=== PATIENT | female | born 1960 | race Caucasian/White ===

== ENCOUNTER 2017-01-17 17:06 | Emergency (ER) | payer OTHER ==
[2017-01-17 17:16] VITALS: BP 152/71
--- NOTE | 2017-01-17 17:47 | UC ---
Throat Pain/Nasal Carlito HPI - HPI Summary HPI Summary: increases left side maxillary sinus pressure, sore throat for the past 10 days, now has developed severe barky cough and wheezing. chills ans sweats. - History of Current Complaint Chief Complaint: UCRespiratory Stated Complaint: RESPIRATORY C/O Time Seen by Provider: 01/17/17 17:38 Hx Obtained From: Patient Hx Last Menstrual Period: 11/12/11 Onset/Duration: Sudden Onset, Lasting Days Severity: Moderate Associated Signs & Symptoms: Positive: Dysphagia, Wheezing, Sinus Discomfort, Nasal Discharge - Epiglottits Risk Factors Epiglottis Risk Factors: Negative - Allergies/Home Medications Allergies/Adverse Reactions: Allergies Allergy/AdvReac Type Severity Reaction Status Date / Time No Known Allergies Allergy Verified 01/17/17 17:16 Home Medications: Home Medications Albuterol HFA INHALER* [Ventolin HFA Inhaler*] 1 puff INH Q4H PRN 01/17/17 [ History Confirmed 01/17/17] Alendronate (NF) [Fosamax (NF)] 70 mg PO MONTHLY 01/17/17 [History Confirmed ] Escitalopram Oxalate [Lexapro] 10 mg PO 01/17/17 [History] Pravastatin Sodium [Pravachol] 40 mg PO 01/17/17 [History] PMH/Surg Hx/FS Hx/Imm Hx Previously Healthy: Yes Endocrine History Of: Reports: Diabetes, Thyroid Disease Cardiovascular History Of: Reports: Hypertension Denies: Pacemaker/ICD, Congestive Heart Failure Respiratory History Of: Reports: Asthma GI/ History Of: Denies: Renal Disease Cancer History Of: Denies: Breast Cancer - Surgical History Surgical History: Yes Surgery Procedure, Year, and Place: GALL BLADDER SURG.06/2011 [place]STRIC BYPASS [place] [place] 05[place]2012 parathyroid removal January [address] [facility] [place] - Family History Known Family History: Positive: Cardiac Disease - Social History Alcohol Use: None Substance Use Type: None Smoking Status (MU): Never Smoked Tobacco Review of Systems Constitutional: Chills, Fatigue Skin: Negative Eyes: Negative ENT: Sore Throat, Ear Ache, Nasal Discharge Respiratory: Shortness Of Breath, Cough Cardiovascular: Negative Gastrointestinal: Negative Genitourinary: Negative Motor: Negative Neurovascular: Negative Musculoskeletal: Negative Neurological: Negative Psychological: Negative All Other Systems Reviewed And Are Negative: Yes Physical Exam Triage Information Reviewed: Yes Appearance: Well-Nourished, Ill-Appearing, Pain Distress Vital Signs: Initial Vital Signs Temp 97.6 F 01/17/17 17:12 Pulse 56 01/17/17 17:12 Resp 20 01/17/17 17:12 BP 152/71 01/17/17 17:12 Pulse Ox 99 01/17/17 17:12 Vital Signs Reviewed: Yes Eye Exam: Normal Eyes: Positive: Conjunctiva Clear ENT: Positive: Pharyngeal erythema, Nasal congestion - left maxillary sinus pressure, TMs normal, Tonsillar swelling - left Dental Exam: Normal Neck exam: Normal Neck: Positive: Supple, Nontender, No Lymphadenopathy Respiratory Exam: Normal Respiratory: Positive: Chest non-tender, Wheezing, Inspiration Abdominal Exam: Normal Abdomen Description: Positive: Nontender, No Organomegaly, Soft Bowel Sounds: Positive: Present Musculoskeletal Exam: Normal Musculoskeletal: Positive: Strength Intact, ROM Intact, No Edema Neurological Exam: Normal Neurological: Positive: Alert, Muscle Tone Normal Psychological Exam: Normal Skin Exam: Normal Throat Pain/Nasal Course/Dx - Course Course Of Treatment: hx obtained, exam performed, meds reviewed, treated for sinusitis and wheezing - Differential Dx/Diagnosis Differential Diagnosis/HQI/PQRI: Influenza, Laryngitis, Otitis Media, Pharyngitis, Sinusitis, Tonsillitis, URI Provider Diagnoses: sinutitis. bronchospasm Discharge - Discharge Plan Condition: Stable Disposition: HOME Prescriptions: Amoxicillin/Clavulanate TAB* [Augmentin TAB 875*] 875 mg PO BID #14 tab predniSONE TAB* [Deltasone TAB*] 40 mg PO DAILY #14 tab Patient Education Materials: Sinusitis (ED) Additional Instructions: take the medication as prescribed. Increase your fluid intake and get plenty of rest. ibuprofen and tylneol for pain and fever.
== END 2017-01-17 18:16 | disposition home or self-care (01) ==
LOC: UCEAST 17:06
DX: J32.9 Chronic sinusitis, unspecified (principal); E11.9 Type 2 diabetes mellitus without complications; E07.9 Disorder of thyroid, unspecified; I10 Essential (primary) hypertension; J45.909 Unspecified asthma, uncomplicated
CPT/HCPCS: 99212; G0463

== ENCOUNTER 2017-01-23 10:53 | Emergency (ER) | payer OTHER ==
[2017-01-23 11:55] VITALS: BP 133/68
--- NOTE | 2017-01-23 13:14 | UC ---
Minor Trauma HPI - HPI Summary HPI Summary: while walking outdoors 3 days ago pt tripped on uneven ground and fell onto L side. Scraped L hand and L knee -- those areas are feeling much better now. Also landed on L hip/side/ribs and in the hours and days after the fall developed aching on the L side. Also sees some dark bruises and linear red lines where she fell and is not sure if she should be worried. Has no pain with ambulation, wt-bearing, or movement of the L hip. Does have side pain with coughing and deep breathing, but said she had some of that before because she is getting over a URI. Went to gym to exercise yesterday and felt more sore afterward, but is improving a lot today. - History of Current Complaint Chief Complaint: UCUpperExtremity Stated Complaint: FELL PAIN ON SIDE Time Seen by Provider: 01/23/17 12:48 Hx Obtained From: Patient Hx Last Menstrual Period: 11/12/11 ?: No Onset/Duration: Sudden Onset, Lasting Days Onset Of Pain: Immediate Severity Initially: Mild Severity Currently: Mild Mechanism Of Injury: Fall From A Standing Position Aggravating Factor(s): Coughing, Movement Associated Signs And Symptoms: Positive: Ecchymosis. Negative: Loss Of Consciousness, Swelling - Allergies/Home Medications Allergies/Adverse Reactions: Allergies Allergy/AdvReac Type Severity Reaction Status Date / Time No Known Allergies Allergy Verified 01/23/17 11:47 PMH/Surg Hx/FS Hx/Imm Hx Endocrine History Of: Reports: Diabetes, Thyroid Disease Cardiovascular History Of: Reports: Hypertension Denies: Cardiac Disorders, Pacemaker/ICD, Congestive Heart Failure Respiratory History Of: Reports: Asthma Denies: COPD GI/ History Of: Denies: Ulcer, Renal Disease Cancer History Of: Denies: Breast Cancer - Surgical History Surgical History: Yes Surgery Procedure, Year, and Place: GALL BLADDER SURG.06/2011 [place]IC BYPASS [facility] [place] 05[place]2012 parathyroid removal January 2013 [facility] - Family History Known Family History: Positive: Cardiac Disease - Social History Alcohol Use: None Substance Use Type: None Smoking Status (MU): Never Smoked Tobacco Review of Systems Constitutional: Negative Skin: Bruising Eyes: Negative ENT: Negative Respiratory: Negative Cardiovascular: Negative Gastrointestinal: Negative Genitourinary: Negative Motor: Negative Neurovascular: Negative Musculoskeletal: Negative Neurological: Negative Psychological: Negative All Other Systems Reviewed And Are Negative: Yes Physical Exam Triage Information Reviewed: Yes Appearance: Well-Appearing, Well-Nourished, Obese Vital Signs: Initial Vital Signs Temp 97.4 F 01/23/17 11:49 Pulse 62 01/23/17 11:49 Resp 16 01/23/17 11:49 BP 133/68 01/23/17 11:49 Pulse Ox 99 01/23/17 11:49 Vital Signs Reviewed: Yes Eye Exam: Normal Eyes: Positive: Conjunctiva Clear ENT Exam: Normal ENT: Positive: Normal ENT inspection, Hearing grossly normal, Pharynx normal, TMs normal Dental Exam: Normal Neck exam: Normal Neck: Positive: Supple, Nontender Respiratory Exam: Normal Respiratory: Positive: Chest non-tender, Lungs clear, Normal breath sounds, No respiratory distress, No accessory muscle use Cardiovascular Exam: Normal Cardiovascular: Positive: RRR, No Murmur Abdomen Description: Positive: No Organomegaly, Soft. Negative: CVA Tenderness (R), CVA Tenderness (L), Distended, Guarding, McBurney's Point Tenderness, Peritoneal Signs Musculoskeletal Exam: Normal, Other - Full ROM of L hip, Musculoskeletal: Positive: Strength Intact, ROM Intact, Other: - no rib pain with indirect stress Neurological Exam: Normal Neurological: Positive: Alert, Muscle Tone Normal Psychological Exam: Normal Skin Exam: Other - small bruises L hip, several linear red bruises consistent with landing on a strap or clothing Minor Trauma Course/Dx - Differential Dx/Diagnosis Provider Diagnoses: Fall. contusions Discharge - Discharge Plan Condition: Stable Disposition: HOME Patient Education Materials: Contusion in Adults (ED) Referrals: Christine Álvarez MD [Primary Care Provider] - Additional Instructions: As we discussed, there are no signs on exam that suggest you have a broken bone or other serious underlying injury. I expect your pain and bruises to gradually fade away, and staying active usually speeds this process with minor injuries like this. You can take acetaminophen if needed. See your primary care provider or return here if you have increasing difficulty breathing or new/sudden change in your symptoms.
== END 2017-01-23 13:25 | disposition home or self-care (01) ==
LOC: UCEAST 10:53
DX: S70.02XA Contusion of left hip, initial encounter (principal); S60.512A Abrasion of left hand, initial encounter; S80.212A Abrasion, left knee, initial encounter; W01.0XXA Fall on same level from slipping, tripping and stumbling without subsequent striking against object, initial encounter; Y93.01 Activity, walking, marching and hiking; Y92.9 Unspecified place or not applicable; E11.9 Type 2 diabetes mellitus without complications; E07.9 Disorder of thyroid, unspecified; I10 Essential (primary) hypertension; J45.909 Unspecified asthma, uncomplicated; E66.9 Obesity, unspecified; Z90.49 Acquired absence of other specified parts of digestive tract; Z98.84 Bariatric surgery status
CPT/HCPCS: 99211; G0463

== ENCOUNTER 2017-05-08 09:06 | Emergency (ER) | payer OTHER ==
[2017-05-08 09:17] VITALS: BP 145/79
--- NOTE | 2017-05-28 11:52 | UC ---
Carlos Manuel Perez Angela, scribed for Lisa Rdz DO on 05/08/17 at 0928 . Skin Complaint HPI - HPI Summary HPI Summary: This pt is a 56 y/o female presenting to [facility] c/o lump underneath right breast x8 days ago. Pt reports that her lump first started as a red pimple but 2-3 days after onset it became a hard lump. She describes it as tender to touch, non -radiating pain, rating it 5 out 10 in severity, and as the size of a walnut. Pt notes that the lump is not warm, feels smooth around the edge, does not move around, and it is no longer red. She states she has never had this before. Pt denies any drainage from lump, fever, chills unexpected weight loss, sweats, nausea, vomiting, chest pain, SOB, headache, cough, rashes. She last had her mammogram in March 2017. - History of Current Complaint Chief Complaint: UCSkin Time Seen by Provider: 05/08/17 09:09 Stated Complaint: PERSONAL Hx Obtained From: Patient Hx Last Menstrual Period: 11/12/11 Onset/Duration: Lasting Days Pain Intensity: 5 Pain Scale Used: 0-10 Numeric Location: Other - Under right breast Character: Pain, Redness, Raised Aggravating: Nothing Alleviating: Nothing Associated Signs & Symptoms: Positive: Tenderness. Negative: Nausea, Vomiting, Diaphoresis, Fever, Chills, Cough, Chest Pain, Rash, Drainage - Allergy/Home Medications Allergies/Adverse Reactions: Allergies Allergy/AdvReac Type Severity Reaction Status Date / Time No Known Allergies Allergy Verified 05/08/17 09:18 Home Medications: Home Medications Ascorbic Acid TAB* [Vitamin C TAB*] 1 tab PO DAILY 05/08/17 [History Confirmed 05/08/17] Biotin [Biotin] 5,000 mcg SL DAILY 05/08/17 [History Confirmed 05/08/17] Calcium Citrate-Vitamin D [Citracal Petites/Vitamin 200-250 mg-Unit] 1 tab PO DAILY 05/08/17 [History Confirmed 05/08/17] Cholecalciferol [Vitamin D3] 1 tab PO DAILY 05/08/17 [History Confirmed 05/08/17 ] Cyanocobalamin [Vitamin B 12] 500 mg SL DAILY 05/08/17 [History Confirmed ] Ferrous Sulfate [Iron (Ferrous Sulfate)] 1 tab PO DAILY 05/08/17 [History Confirmed 05/08/17] Levalbuterol HFA INHALER* [Xopenex Hfa Inhaler*] 45 mg INH Q4HR PRN 05/08/17 [ History Confirmed 05/08/17] Levocetirizine Dihydrochloride [Xyzal Allergy 24Hr] 1 tab PO DAILY 05/08/17 [ History Confirmed 05/08/17] Lisinopril [Lisinopril 2.5 MG-] 2.5 mg PO DAILY 05/08/17 [History Confirmed ] Multiple Vitamins W/ Minerals [Centrum Vitamints] 1 chw PO DAILY 05/08/17 [ History Confirmed 05/08/17] Olopatadine 0.2% (NF) [Pataday 0.2% (NF)] 1 drop OPHTHALMIC DAILY PRN 05/08/17 [ History Confirmed 05/08/17] Veramyst 1 spray BOTH NARES DAILY PRN 05/08/17 [History] Review of Systems Constitutional: Negative Skin: Other - Tender lump under right breast. Respiratory: Negative Cardiovascular: Negative Gastrointestinal: Negative Neurological: Negative All Other Systems Reviewed And Are Negative: Yes - Comments Additional Review of Systems Comments: NEGATIVE: fever, chills, unexpected weight change, sweats, nausea, vomiting, chest pain, SOB, headache, cough, rashes. PMH/Surg Hx/FS Hx/Imm Hx Endocrine History: Diabetes, Thyroid Disease Cardiovascular History: Hypertension Respiratory History: Asthma - Surgical History Surgical History: Yes Surgery Procedure, Year, and Place: GALL BLADDER SURG.06/2011 [place]PASS [place] parathyroid removal January 2013 [facility] [place] - Family History Known Family History: Positive: Cardiac Disease, Hypertension - Mother and Father, Diabetes - Father - Social History Alcohol Use: Rare Substance Use Type: None Smoking Status (MU): Never Smoked Tobacco Physical Exam Triage Information Reviewed: Yes Appearance: Well-Appearing, No Pain Distress, Well-Nourished Vital Signs: Initial Vital Signs Temp 97.6 F 05/08/17 09:13 Pulse 55 05/08/17 09:13 Resp 16 05/08/17 09:13 BP 145/79 05/08/17 09:13 Pulse Ox 99 08/13/17 09:13 Vital Signs Reviewed: Yes Eyes: Positive: Conjunctiva Clear. Negative: Discharge ENT: Positive: Hearing grossly normal. Negative: Muffled/hoarse voice - Normal voice. Neck exam: Normal Neck: Positive: Supple Respiratory: Positive: Lungs clear, Normal breath sounds, No respiratory distress, No accessory muscle use Cardiovascular: Positive: RRR, No Murmur Musculoskeletal Exam: Normal Neurological: Positive: Alert, Muscle Tone Normal Psychological Exam: Normal Psychological: Positive: Age Appropriate Behavior Skin Exam: Other - 1.5 cm x 1 cm mass under right breast, it is firm. Course/Dx - Diagnoses Provider Diagnoses: Breast Mass. Elevated blood pressure Discharge - Discharge Plan Condition: Stable Disposition: HOME Patient Education Materials: Breast Mass (ED) Referrals: Christine Álvarez MD [Primary Care Provider] - 1 Day Kamari Meng MD [Medical Doctor] - 1 Day Additional Instructions: PLEASE FOLLOW UP WITH YOUR PC OR MILITARY TECHNOLOGY MANAGER DIRECTED. IF WORK UP ON THE MASS IS NEGATIVE FOR CANCER, YOU WOULD LIKELY BENEFIT FROM OSTEOPATHIC TREATMENT. WE RECOMMEND THAT YOU FIND AN OSTEOPATHIC PHYSICIAN IN YOUR AREA WHO FOCUSES EXCLUSIVELY ON OSTEOPATHIC MANIPULATIVE MEDICINE WITH EXPERTISE IN MYOFACIAL, LYMPHATIC, VISCERAL AND INTEROSSEOUS WORK. Your blood pressure was elevated at this visit, it is probably due to your current condition. Please follow up with your primary care provider. The documentation as recorded by the Carlos Manuel glass Angela accurately reflects the service I personally performed and the decisions made by me, Lisa Rdz DO.
== END 2017-05-08 10:05 | disposition home or self-care (01) ==
LOC: UCEAST 09:06
DX: N63 Unspecified lump in breast (principal); I10 Essential (primary) hypertension; E11.9 Type 2 diabetes mellitus without complications; E07.9 Disorder of thyroid, unspecified; J45.909 Unspecified asthma, uncomplicated; Z90.49 Acquired absence of other specified parts of digestive tract; Z98.84 Bariatric surgery status
CPT/HCPCS: 99212; G0463

== ENCOUNTER 2018-08-15 14:01 | Emergency (ER) | payer OTHER ==
[2018-08-15 14:38] VITALS: BP 136/81
--- NOTE | 2018-08-15 15:04 | UC ---
Respiratory Complaint HPI - HPI Summary HPI Summary: 57 yo female presents with sinus pain/pressure/congestion, post nasal drip, and a dry cough for the last week. She has not been taking anything OTC. She has a hx of asthma and has an albuterol inhaler at home, but says she has not been using this. She has felt hot/cold at times, but has not taken her temperature and is unsure if she has a fever. Denies sore throat, SOB, chest pain, rash. - History of Current Complaint Chief Complaint: UCGeneralIllness Stated Complaint: COUGH,WHEEZING Time Seen by Provider: 08/15/18 14:58 Hx Obtained From: Patient Hx Last Menstrual Period: 11/12/11 Onset/Duration: Gradual Onset Severity Initially: Moderate Severity Currently: Moderate Pain Intensity: 8 Pain Scale Used: 0-10 Numeric Character: Cough: Nonproductive - Allergies/Home Medications Allergies/Adverse Reactions: Allergies Allergy/AdvReac Type Severity Reaction Status Date / Time No Known Allergies Allergy Verified 08/15/18 14:28 Home Medications: Home Medications Acetaminophen [Acetaminophen Extra Strength] 500 mg PO ONCE 08/15/18 [History Confirmed 08/15/18] PMH/Surg Hx/FS Hx/Imm Hx - Additional Past Medical History Additional PMH: Allergies Cardiovascular History: Hypertension Psychological History: Anxiety, Depression - Surgical History Surgical History: Yes Surgery Procedure, Year, and Place: GALL BLADDER SURG.06/2011 [place] [facility] [place] - Family History Known Family History: Positive: Cardiac Disease - Social History Occupation: Employed Full-time Lives: With Family Alcohol Use: Occasionally Substance Use Type: None Smoking Status (MU): Never Smoked Tobacco Review of Systems All Other Systems Reviewed And Are Negative: Yes Constitutional: Positive: Negative Skin: Positive: Negative Eyes: Positive: Negative ENT: Positive: Nasal Discharge, Sinus Congestion, Sinus Pain/Tenderness Respiratory: Positive: Cough Cardiovascular: Positive: Negative Gastrointestinal: Positive: Negative Neurological: Positive: Negative Psychological: Positive: Negative Physical Exam - Summary Physical Exam Summary: GENERAL: NAD. WDWN. No pain distress. SKIN: No rashes, sores, lesions, or open wounds. HEENT: Head: AT/NC Eyes: EOM intact. Conjunctiva clear without inflammation or discharge. Ears: Hearing grossly normal. TMs intact, no bulging, erythema, or edema. Nose: Nasal mucosa mildly swollen and erythematous with clear discharge. TTP maxillary and frontal sinus. Positive post nasal drip Throat: Posterior oropharynx without exudates, erythema, or tonsillar enlargement. Uvula midline. NECK: Supple. Nontender. No lymphadenopathy. CHEST: Scant wheezing throughout. No r/r. No accessory muscle use. Breathing comfortably and in no distress. CV: RRR. Without m/r/g. Pulses intact. NEURO: Alert. PSYCH: Age appropriate behavior. Triage Information Reviewed: Yes Vital Signs: Initial Vital Signs Temp 97.5 F 08/15/18 14:32 Pulse 75 08/15/18 14:32 Resp 16 08/15/18 14:32 BP 136/81 08/15/18 14:32 Pulse Ox 98 08/15/18 14:32 Vital Signs Reviewed: Yes UC Diagnostic Evaluation - Laboratory O2 Sat by Pulse Oximetry: 98 Respiratory Course/Dx - Course Course Of Treatment: Sinusitis. Asthma exacerbation. Will tx with jarvis and have her start using her at home inhaler for her asthma. Advised to try OTC dayquill/ nyquill and/or Mucinex in addition. - Differential Dx/Diagnosis Provider Diagnoses: Sinusitis. Asthma Exacerbation Discharge - Sign-Out/Discharge Documenting (check all that apply): Patient Departure All imaging exams completed and their final reports reviewed: No Studies - Discharge Plan Condition: Stable Disposition: HOME Prescriptions: Azithromycin TAB* [Zithromax TAB (Z-BRUCE) 250 mg #6 tabs] 2 tab PO .TODAY, THEN 1 DAILY #1 bruce Patient Education Materials: Sinusitis (ED), Acute Bronchitis (ED) Referrals: Christine Álvarez MD [Primary Care Provider] - Additional Instructions: If you develop a fever, shortness of breath, chest pain, new or worsening symptoms - please call your PCP or go to the ED. Your blood pressure was mildly elevated at todays visit. Please see your primary provider within 4 weeks for recheck and re-evaluation. 1) Please use your at home inhalers as directed for coughing/wheezing - Billing Disposition and Condition Condition: STABLE Disposition: Home - Attestation Statements Provider Attestation: Per institutional requirements, I have reviewed the chart, however, I was not consulted specifically or made aware of this patient by the midlevel provider. I did not personally evaluate, interact with , or disposition this patient.
== END 2018-08-15 15:11 | disposition home or self-care (01) ==
LOC: UCEAST 14:01
DX: J32.9 Chronic sinusitis, unspecified (principal); J45.901 Unspecified asthma with (acute) exacerbation; I10 Essential (primary) hypertension
CPT/HCPCS: 99212; G0463

== ENCOUNTER 2018-09-26 08:46 | Emergency (ER) | payer OTHER ==
[2018-09-26 09:00] VITALS: BP 132/76
--- NOTE | 2018-09-26 10:05 | UC ---
Respiratory Complaint HPI - HPI Summary HPI Summary: 1 week of cough, congestion, sinus pressure and intermittent subjective fever. Does not feel she is improving. - History of Current Complaint Chief Complaint: UCRespiratory Stated Complaint: SINUS COMPLAINT Time Seen by Provider: 09/26/18 09:35 Hx Obtained From: Patient Hx Last Menstrual Period: 11/12/11 Onset/Duration: Gradual Onset, Lasting Days, Still Present Timing: Constant Severity Initially: Moderate Severity Currently: Moderate Pain Intensity: 6 Pain Scale Used: 0-10 Numeric Character: Cough: Nonproductive Aggravating Factors: Nothing Alleviating Factors: Nothing Associated Signs And Symptoms: Positive: Fever, URI, Nasal Congestion, Sinus Discomfort. Negative: Dyspnea, Wheezing - Allergies/Home Medications Allergies/Adverse Reactions: Allergies Allergy/AdvReac Type Severity Reaction Status Date / Time No Known Allergies Allergy Verified 08/15/18 14:28 Home Medications: Home Medications Guaifen/Dextromethorphan/PE [Mucinex Fast-Max Congest-Cough] 09/26/18 [History] PMH/Surg Hx/FS Hx/Imm Hx Endocrine History: Diabetes, Thyroid Disease - PARATHYROIDECTOMY, Dyslipidemia Cardiovascular History: Hypertension Respiratory History: Asthma - Surgical History Surgical History: Yes Surgery Procedure, Year, and Place: GALL BLADDER SURG.06/2011 [place]IC [place]PASS [place] January 2013 [facility] [place] - Family History Known Family History: Positive: Cardiac Disease - Social History Alcohol Use: Daily Alcohol Amount: 2 drinks/day Substance Use Type: None Smoking Status (MU): Never Smoked Tobacco Review of Systems All Other Systems Reviewed And Are Negative: Yes Constitutional: Positive: Fever, Fatigue ENT: Positive: Nasal Discharge, Sinus Congestion Respiratory: Positive: Cough Cardiovascular: Positive: Negative Gastrointestinal: Positive: Negative Physical Exam Triage Information Reviewed: Yes Appearance: Well-Appearing, No Pain Distress, Well-Nourished Vital Signs: Initial Vital Signs Temp 97.6 F 09/26/18 08:50 Pulse 59 09/26/18 08:50 Resp 16 09/26/18 08:50 BP 132/76 09/26/18 08:50 Pulse Ox 97 09/26/18 08:50 Vital Signs Reviewed: Yes Eyes: Positive: Conjunctiva Clear ENT: Positive: Hearing grossly normal, Pharynx normal, TMs normal Neck: Positive: Supple, Nontender, No Lymphadenopathy Respiratory Exam: Normal Cardiovascular Exam: Normal Abdomen Description: Positive: Soft Musculoskeletal: Positive: No Edema Neurological: Positive: Alert Psychological: Positive: Age Appropriate Behavior Skin: Negative: Rashes UC Diagnostic Evaluation - Laboratory O2 Sat by Pulse Oximetry: 97 Respiratory Course/Dx - Differential Dx/Diagnosis Provider Diagnosis: Acute bronchitis Discharge - Sign-Out/Discharge Documenting (check all that apply): Patient Departure All imaging exams completed and their final reports reviewed: No Studies - Discharge Plan Condition: Stable Disposition: HOME Prescriptions: Azithromycin 500 mg PO DAILY #5 tab Codeine Phosphate/Guaifenesin [Codeine-Guaifen 10-100 mg/5 ml] 5 - 10 ml PO Q6H PRN #150 ml MDD 40ML PRN Reason: Cough Patient Education Materials: Acute Bronchitis (ED) Referrals: Christine Álvarez MD [Primary Care Provider] - If Needed Additional Instructions: YOUR SYMPTOMS MAY BE VIRALLY MEDIATED BUT GIVEN THE LENGTH OF TIME YOU HAVE BEEN ILL WE WILL COVER YOU WITH ANTIBIOTICS. IF YOU START THE MEDICINE BE SURE TO TAKE IT FOR THE FULL COURSE. REST, HYDRATE, OTC MEDS NEEDED. WILL ALSO TREAT WITH COUGH MEDICINE. SEEK FOLLOW-UP WITH YOUR PCP IF YOU ARE NOT IMPROVING OVER THE NEXT 1-2 WEEKS. - Billing Disposition and Condition Condition: STABLE Disposition: Home
== END 2018-09-26 09:55 | disposition home or self-care (01) ==
LOC: UCEAST 08:46
DX: J20.9 Acute bronchitis, unspecified (principal); J34.89 Other specified disorders of nose and nasal sinuses; E11.9 Type 2 diabetes mellitus without complications; J45.909 Unspecified asthma, uncomplicated; I10 Essential (primary) hypertension; Z98.84 Bariatric surgery status
CPT/HCPCS: 99212; G0463

== ENCOUNTER 2019-11-29 12:23 | Day surgery (SDC) | payer OTHER ==
[~2019-11-29 12:23] MED LIST: Buffered Lidocaine 1% SYRIN* 1 ML/SYRINGE INTRADERM ONE; Bupivacaine 0.5% SDV PF* 30ML VIAL ONE; Lactated Ringers 1000 ML Bag* 1,000 ML IV SCH
[2019-11-29 14:17] VITALS: BP 133/51
--- NOTE | 2019-11-30 02:31 | OP ---
OPERATIVE REPORT: DATE OF OPERATION: 11/29/19 - TOBY DATE OF : 56 SURGEON: Manuel Gomez MD SURVEYING TECHNICIAN: JAYSHREE Man An ortho assistant was needed for the procedure to aid in retraction. ANESTHESIOLOGIST: None. ANESTHESIA: Local only with digital block performed with 0.5% Marcaine. PRE-OP DIAGNOSIS: Right ring finger dorsal periarticular PIP joint mass. POST-OP DIAGNOSIS: Right ring finger dorsal middle phalanx periarticular osteophyte adjacent to the radial collateral ligament insertion. ESTIMATED BLOOD LOSS: 2 mL. COMPLICATIONS: None. FINDINGS: See above and below. DESCRIPTION OF PROCEDURE: Ms. Rogers was seen in the preoperative holding area. The correct site, side, and procedure were identified. I injected the right ring finger with a digital block with 0.5% Marcaine. We came back to the operating room, where the arm was prepped and draped in the usual fashion. A time-out was performed. I placed a digital tourniquet on the finger. I then made a longitudinal incision on the dorsal radial finger over the mass, which was just distal to the PIP joint. Dissection was carried down. There was no soft tissue mass. The transverse retinacular ligament was released, so that I could retract the extensor tendon dorsally. A large bone spur was noted just at the insertion of the radial collateral ligament and dorsal to that. I freed up all the soft tissue around it. I took the rongeur and I excised the osteophyte. As they came more palmarly, it was underneath the insertion of the radial collateral ligament. I preserved the vas majority of the radial collateral ligament insertion, but I did release just the most dorsal part of the proper radial collateral ligament. Once I had fully excised the osteophyte to the extent possible, I irrigated out the area, I placed some bone wax on the cancellous bed. I then placed one micro Mitek suture anchor right adjacent to the footprint of the radial collateral ligament insertion. I sewed the one limb of the 4-0 Ethibond suture as a whipstitch up into the most dorsal part of the ligament and then I tied that off just to secure and get some extra stability to the radial collateral ligament. I had it flexed and extend the finger multiple times. There was full range of motion. There was no instability whatsoever. We had excised as much of the osteophyte as we could and so we irrigated out the wound. The skin was then closed with 4-0 nylon suture. A soft dressing was applied and she was taken to the recovery room in stable condition. [id number] #: [id number] MTDD
== END 2019-11-29 14:13 | disposition home or self-care (01) ==
LOC: OREAST 12:23
PROVIDERS: ATTEND Orthopaedic Surgery Hand Surgery
DX: M25.741 Osteophyte, right hand (principal); I10 Essential (primary) hypertension; J45.909 Unspecified asthma, uncomplicated; E78.00 Pure hypercholesterolemia, unspecified; E11.9 Type 2 diabetes mellitus without complications; Z79.84 Long term (current) use of oral hypoglycemic drugs; F41.9 Anxiety disorder, unspecified
CPT/HCPCS: 88304; 88311; J3490

== ENCOUNTER 2023-05-26 05:46 | Inpatient (IN) ==
[~2023-05-26 05:46] MED LIST changes: +Buffered Lidocaine 1% SYRIN 1 ml INTRADERM ONE; -Buffered Lidocaine 1% SYRIN* 1 ML/SYRINGE INTRADERM ONE; -Bupivacaine 0.5% SDV PF* 30ML VIAL ONE; +HYDROmorphone 1 MG/1 ML SYRINGE IV PRN; -Lactated Ringers 1000 ML Bag* 1,000 ML IV SCH; +Naloxone 0.4 mg VIAL 0.4 mg/ml 1 ml VIAL IV PRN; +Ondansetron 4 mg VIAL 2 MG/ML 2 ml VIAL IV PRN; +Scopolamine 1 mg/72hr PATCH TRANSDERM ONE; +fentaNYL 100 mcg/2 ml 50 MCG/ML VIAL IV PRN
[2023-05-26] MEDS ORDERED: Scopolamine 1 mg/72hr PATCH ONE (06:08)
[2023-05-26] MEDS ORDERED: ceFAZolin 2 GM in NS PREMIX 2 GM/100 ML BAG IVPB ONE (06:08)
[2023-05-26] MEDS ORDERED: Ondansetron 4 mg VIAL 2 MG/ML 2 ml VIAL ONE ×3 (06:08→18:11)
[2023-05-26] MEDS ORDERED: Dexamethasone IV 4 MG/ML VIAL 1 ml VIAL ONE ×2 (06:08→07:17)
[2023-05-26] MEDS ORDERED: Heparin 5000 UNITS/ML 1 mL VIAL ONE (06:08)
[2023-05-26 06:46] LABS: Rapid COVID-19 Molecular Undetected (Undetected)
[2023-05-26] MEDS ORDERED: Bupivacaine 0.25% SDV 30 ML ONE (06:56)
[2023-05-26] MEDS ORDERED: ISOSULFAN BLUE 1% 5 ML VIAL 10 MG/ML SUBCUT ONE (06:56)
[2023-05-26] MEDS: Lactated Ringers 1000 ml BAG 1,000 ML IV SCH ×2 (06:57→19:04)
[2023-05-26] MEDS ORDERED: fentaNYL 250 mcg/5 ml 50 MCG/ML 5 ml VIAL (250 MCG) ONE ×2 (07:17→20:35)
[2023-05-26] MEDS ORDERED: Midazolam 2 mg/2 ml VIAL 1 mg/ml 2 ml VIAL (2 mg) ONE ×2 (07:17→23:25)
[2023-05-26] MEDS ORDERED: Propofol 10 MG/ML 20 ML BTL ONE ×4 (07:17→20:35)
[2023-05-26] MEDS ORDERED: Rocuronium 50 mg VIAL 10 mg/ml 5 ml VIAL (50 mg) ONE ×3 (07:23→20:36)
[2023-05-26] MEDS ORDERED: Lidocaine 2% PF 5 ML VIAL ONE (07:24)
[2023-05-26] MEDS ORDERED: Phenylephrine 40 mcg/mL 10mL (400mcg) SYRINGE ONE (08:16)
[2023-05-26] MEDS ORDERED: HYDROmorphone 0.5 MG/0.5 ML SYRINGE ONE ×3 (10:38→12:08)
[2023-05-26] MEDS ORDERED: Lactated Ringers 1000 ml BAG 1,000 ML IV ONE (12:55)
[2023-05-26] MEDS ORDERED: Metoprolol Tartrate 5 mg VIAL 5 ml VIAL (1 mg/ml) ONE (13:09)
[2023-05-26] MEDS ORDERED: Metoprolol Tartrate 5 mg VIAL 5 ml VIAL (1 mg/ml) IV ONE (13:14)
[2023-05-26 13:53] LABS: ABS Lymphocytes 0.6 10^3/uL (1.0-4.8); ABS Monocytes 0.2 10^3/uL (0.0-0.9); ABS Neutrophils 14.4 10^3/uL (1.5-7.6); Hematocrit 39.6 % (35-45); Hemoglobin 13.2 g/dL (11.5-14.3); Lymphocyte % 4.2 %; Mean Corpuscular Hemoglobin 31.2 pg (27-33); Mean Corpuscular Hgb Conc 33.4 g/dL (31-36); Mean Corpuscular Volume 93.6 fL (80-97); Mean Platelet Volume 7.9 fL (7.5-11.2); Platelet Count 264 10^3/uL (150-450); Red Blood Count 4.23 10^6/uL (3.63-4.92); Red Cell Distribution Width 12.9 % (12-17); White Blood Count 15.3 10^3/uL (3.8-11.8)
[2023-05-26] MEDS ORDERED: Albumin Human 5% 12.5 GM/250 ML BTL IV ONE ×2 (14:08→14:14)
[2023-05-26 14:12] LABS: Calcium 8.6 mg/dL (8.6-10.3); Potassium 4.3 mmol/L (3.5-5.0); eGFR CKD-EPI 62.9 (>60)
[2023-05-26] MEDS ORDERED: Acetaminophen IV 1 GM/100ML 1,000 MG/100 ML BAG IV ONE (17:32)
[2023-05-26] MEDS ORDERED: fentaNYL 100 mcg/2 ml 50 MCG/ML VIAL IV SLOW PU PRN (18:15)
[2023-05-26] MEDS ORDERED: Olopatadine 0.2% (NF) 1 DROP BTL BOTH EYES PRN (18:18)
[2023-05-26] MEDS ORDERED: Albuterol HFA INHALER 8 gm MDI INH PRN (18:18)
[2023-05-26] MEDS ORDERED: EPINEPHrine Anaphylaxis SYR CERTADOSE SYR KIT ONE (18:39)
[2023-05-26] MEDS ORDERED: Succinylcholine 200 mg VIAL 20 mg/ml 10 ml VIAL (200 mg) ONE (18:39)
[2023-05-26] MEDS ORDERED: fentaNYL 100 mcg/2 ml 50 MCG/ML VIAL ONE (19:24)
[2023-05-26 19:43] LABS: ABS Lymphocytes 1.3 10^3/uL (1.0-4.8); ABS Monocytes 1.2 10^3/uL (0.0-0.9); ABS Neutrophils 14.3 10^3/uL (1.5-7.6); ABS Nucleated RBC 0.01 10^3/ul; Hematocrit 22.6 % (35-45); Hemoglobin 7.4 g/dL (11.5-14.3); Lymphocyte % 7.7 %; Mean Corpuscular Hemoglobin 31.4 pg (27-33); Mean Corpuscular Hgb Conc 32.7 g/dL (31-36); Mean Platelet Volume 7.8 fL (7.5-11.2); Platelet Count 189 10^3/uL (150-450); Red Blood Count 2.36 10^6/uL (3.63-4.92); White Blood Count 16.8 10^3/uL (3.8-11.8)
[2023-05-26 19:59] LABS: Calcium 7.5 mg/dL (8.6-10.3); Creatinine, Serum 1.26 mg/dL (0.51-0.95); Potassium 4.3 mmol/L (3.5-5.0); eGFR CKD-EPI 47.7 (>60)
[2023-05-26 20:35] LABS: INR 1.34 (0.83-1.13)
[2023-05-26] MEDS ORDERED: Etomidate 20 mg/10 ml 2 MG/ML 10 ml VIAL ONE (20:35)
[2023-05-26] MEDS ORDERED: Calcium Gluconate 1 GM/10 ML VIAL (in Pyxis) IV PUSH ONE (20:41)
[2023-05-26] MEDS ORDERED: Sodium Bicarbonate 8.4% SYR 50 ml SYRINGE IV ONE (20:42)
[2023-05-26] MEDS ORDERED: ceFAZolin VIAL VIAL ONE (21:36)
[2023-05-26] MEDS ORDERED: EPINEPHrine Anaphylaxis SYR CERTADOSE SYR KIT IM ONE (21:47)
[2023-05-26] MEDS: Norepinephrine 16MCG/ML BAGD5W 4,000 MCG/250 ML BAG IV SCH (22:02)
[2023-05-26] MEDS ORDERED: Dextrose 50% Syringe 50 ml 25 GM/50 ML SYRINGE IV PUSH PRN (22:02)
[2023-05-26] MEDS ORDERED: Phenylephrine IV 10 MG/ML 1 ml VIAL ONE (22:11)
[2023-05-26] MEDS ORDERED: Dexmedetomidine 1,000 MCG in NS 0.9% 250 ml 240 ML IV SCH (23:45)
[2023-05-27 01:02] LABS: Hematocrit 35.1 % (35-45); Hemoglobin 11.9 g/dL (11.5-14.3); Mean Corpuscular Hemoglobin 31.2 pg (27-33); Mean Corpuscular Hgb Conc 33.8 g/dL (31-36); Mean Corpuscular Volume 92.2 fL (80-97); Mean Platelet Volume 7.9 fL (7.5-11.2); Platelet Count 149 10^3/uL (150-450); Red Blood Count 3.81 10^6/uL (3.63-4.92); Red Cell Distribution Width 13.6 % (12-17)
[2023-05-27 01:37] LABS: ABS Lymphocytes 1.2 10^3/uL (1.0-4.8); ABS Monocytes 1.2 10^3/uL (0.0-0.9); ABS Neutrophils 11.6 10^3/uL (1.5-7.6); ABS Nucleated RBC 0.01 10^3/ul; Eosinophil % 0.1 %; Lymphocyte % 8.5 %
[2023-05-27 03:56] LABS: Hematocrit 36.3 % (35-45); Hemoglobin 12.6 g/dL (11.5-14.3); Mean Corpuscular Hemoglobin 31.3 pg (27-33); Mean Corpuscular Hgb Conc 34.7 g/dL (31-36); Mean Corpuscular Volume 90.3 fL (80-97); Mean Platelet Volume 8.1 fL (7.5-11.2); Platelet Count 168 10^3/uL (150-450); Red Blood Count 4.02 10^6/uL (3.63-4.92); Red Cell Distribution Width 13.9 % (12-17); White Blood Count 13.1 10^3/uL (3.8-11.8)
[2023-05-27 03:57] LABS: ABS Lymphocytes 1.1 10^3/uL (1.0-4.8); ABS Monocytes 1.2 10^3/uL (0.0-0.9); ABS Neutrophils 10.8 10^3/uL (1.5-7.6); ABS Nucleated RBC 0.01 10^3/ul; Lymphocyte % 8.5 %; Nucleated Red Blood Cells % 0.1 /100 WBC (0.0-0.4)
[2023-05-27 04:12] LABS: Albumin 3.1 g/dL (3.2-5.2); Albumin/Globulin Ratio 2.2 (1-3); Calcium 7.6 mg/dL (8.6-10.3); Creatinine, Serum 1.52 mg/dL (0.51-0.95); Globulin 1.4 g/dL (2-4); Magnesium 1.4 mg/dL (1.9-2.7); Potassium 3.9 mmol/L (3.5-5.0); Total Bilirubin 0.6 mg/dL (0.2-1.0); Total Protein 4.5 g/dL (6.4-8.9); eGFR CKD-EPI 38.1 (>60)
[2023-05-27] MEDS ORDERED: Magnesium Sulfate 2 gm BAG 2 GM/50 ML BAG IVPB ONE (04:26)
[2023-05-27] MEDS: Multivitamins/Minerals TAB PO SCH (08:26)
[2023-05-27 09:10] LABS: PCO2 Arterial 29 mmHg (35-45); PO2 Arterial 84 mmHg (80-100)
[2023-05-27] MEDS: Acetaminophen IV 1 GM/100ML 1,000 MG/100 ML BAG IV PRN ×2 (09:11→17:32)
[2023-05-27] MEDS ORDERED: NS 0.9% 500 ml BAG 500 ML IV ONE (09:49)
[2023-05-27] MEDS: Norepinephrine 16MCG/ML BAGD5W 4,000 MCG/250 ML BAG IV SCH ×3 (11:28→22:08)
[2023-05-27] MEDS ORDERED: NORMOSOL-R pH 7.4 1000 mL BAG 500 ML IV ONE (13:00)
[2023-05-27 13:51] LABS: Hematocrit 27.7 % (35-45); Hemoglobin 9.8 g/dL (11.5-14.3); Mean Corpuscular Hemoglobin 31.7 pg (27-33); Mean Corpuscular Hgb Conc 35.2 g/dL (31-36); Mean Platelet Volume 7.7 fL (7.5-11.2); Platelet Count 142 10^3/uL (150-450); Red Blood Count 3.08 10^6/uL (3.63-4.92); Red Cell Distribution Width 13.8 % (12-17); White Blood Count 9.1 10^3/uL (3.8-11.8)
[2023-05-27 14:38] LABS: RBC Morphology Normal (Normal)
[2023-05-27 14:42] LABS: ABS Lymphocytes 1.6 10^3/uL (1.0-4.8); ABS Monocytes 1.1 10^3/uL (0.0-0.9); ABS Neutrophils 6.4 10^3/uL (1.5-7.6); ABS Nucleated RBC 0.01 10^3/ul; Lymphocyte % 18.1 %; Nucleated Red Blood Cells % 0.1 /100 WBC (0.0-0.4)
[2023-05-27 16:33] LABS: Albumin 2.4 g/dL (3.2-5.2); Calcium 6.9 mg/dL (8.6-10.3); Potassium 4.2 mmol/L (3.5-5.0)
[2023-05-27 16:39] LABS: Creatinine, Serum 1.62 mg/dL (0.51-0.95); eGFR CKD-EPI 35.3 (>60)
[2023-05-27] MEDS: CMCS:Pravastatin 20 mg TAB (NF) PO SCH (17:31)
[2023-05-27 23:39] LABS: Hematocrit 25.9 % (35-45); Hemoglobin 9.4 g/dL (11.5-14.3)
[2023-05-28 05:41] LABS: ABS Lymphocytes 1.7 10^3/uL (1.0-4.8); ABS Monocytes 0.9 10^3/uL (0.0-0.9); ABS Neutrophils 5.8 10^3/uL (1.5-7.6); Eosinophil % 0.1 %; Hemoglobin 8.6 g/dL (11.5-14.3); Lymphocyte % 19.8 %; Mean Corpuscular Hemoglobin 32.1 pg (27-33); Mean Platelet Volume 7.8 fL (7.5-11.2); Nucleated Red Blood Cells % 0.1 /100 WBC (0.0-0.4); Platelet Count 157 10^3/uL (150-450); Red Blood Count 2.69 10^6/uL (3.63-4.92); Red Cell Distribution Width 13.8 % (12-17); White Blood Count 8.4 10^3/uL (3.8-11.8)
[2023-05-28 06:05] LABS: Calcium 6.9 mg/dL (8.6-10.3); Creatinine, Serum 1.34 mg/dL (0.51-0.95); Potassium 3.7 mmol/L (3.5-5.0); eGFR CKD-EPI 44.3 (>60)
[2023-05-28] MEDS: Norepinephrine 16MCG/ML BAGD5W 4,000 MCG/250 ML BAG IV SCH ×2 (07:37→17:31)
[2023-05-28] MEDS: Multivitamins/Minerals TAB PO SCH (07:39)
[2023-05-28] MEDS ORDERED: NS 0.9% 500 ml BAG 500 ML IV ONE (07:56)
[2023-05-28] MEDS ORDERED: NORMOSOL-R pH 7.4 1000 mL BAG 500 ML IV SCH ×2 (09:00)
[2023-05-28] MEDS: Acetaminophen IV 1 GM/100ML 1,000 MG/100 ML BAG IV PRN ×2 (14:56→21:22)
[2023-05-28 15:32] LABS: ABS Lymphocytes 1.4 10^3/uL (1.0-4.8); ABS Monocytes 0.8 10^3/uL (0.0-0.9); ABS Neutrophils 6.3 10^3/uL (1.5-7.6); Hematocrit 25.4 % (35-45); Lymphocyte % 16.8 %; Mean Corpuscular Hemoglobin 30.8 pg (27-33); Mean Corpuscular Hgb Conc 35.3 g/dL (31-36); Mean Corpuscular Volume 87.2 fL (80-97); Mean Platelet Volume 6.9 fL (7.5-11.2); Platelet Count 140 10^3/uL (150-450); Red Blood Count 2.91 10^6/uL (3.63-4.92); Red Cell Distribution Width 15.2 % (12-17); White Blood Count 8.6 10^3/uL (3.8-11.8)
[2023-05-28] MEDS ORDERED: NORMOSOL-R pH 7.4 1000 mL BAG 1,000 ML IV SCH (17:00)
[2023-05-28] MEDS: CMCS:Pravastatin 20 mg TAB (NF) PO SCH (17:08)
[2023-05-28] MEDS ORDERED: NORMOSOL-R pH 7.4 1000 mL BAG 1,000 ML IV ONE (17:15)
[2023-05-29 04:41] LABS: ABS Lymphocytes 1.6 10^3/uL (1.0-4.8); ABS Monocytes 0.6 10^3/uL (0.0-0.9); ABS Neutrophils 5.3 10^3/uL (1.5-7.6); ABS Nucleated RBC 0.01 10^3/ul; Eosinophil % 0.5 %; Hematocrit 23.9 % (35-45); Hemoglobin 8.5 g/dL (11.5-14.3); Lymphocyte % 21.3 %; Mean Corpuscular Hemoglobin 31.3 pg (27-33); Mean Corpuscular Hgb Conc 35.6 g/dL (31-36); Mean Platelet Volume 6.8 fL (7.5-11.2); Nucleated Red Blood Cells % 0.2 /100 WBC (0.0-0.4); Platelet Count 148 10^3/uL (150-450); Red Blood Count 2.71 10^6/uL (3.63-4.92); Red Cell Distribution Width 15.6 % (12-17); White Blood Count 7.6 10^3/uL (3.8-11.8)
[2023-05-29 04:58] LABS: Calcium 7.1 mg/dL (8.6-10.3); Creatinine, Serum 0.85 mg/dL (0.51-0.95); Magnesium 2.1 mg/dL (1.9-2.7); Phosphorus 1.9 mg/dL (2.5-5.0); Potassium 3.6 mmol/L (3.5-5.0); eGFR CKD-EPI 76.5 (>60)
[2023-05-29] MEDS: Multivitamins/Minerals TAB PO SCH (07:41)
[2023-05-29] MEDS: Potassium & Sodium Phos 250 mg = 1 PACKET PO SCH ×2 (10:25→20:06)
[2023-05-29] MEDS: Norepinephrine 16MCG/ML BAGD5W 4,000 MCG/250 ML BAG IV SCH (10:26)
[2023-05-29 14:57] LABS: ABS Lymphocytes 1.4 10^3/uL (1.0-4.8); ABS Monocytes 0.5 10^3/uL (0.0-0.9); ABS Neutrophils 4.3 10^3/uL (1.5-7.6); ABS Nucleated RBC 0.01 10^3/ul; Eosinophil % 0.7 %; Hematocrit 25.7 % (35-45); Hemoglobin 9.1 g/dL (11.5-14.3); Lymphocyte % 22.1 %; Mean Corpuscular Hemoglobin 31.1 pg (27-33); Mean Corpuscular Hgb Conc 35.3 g/dL (31-36); Mean Corpuscular Volume 88.1 fL (80-97); Mean Platelet Volume 6.9 fL (7.5-11.2); Nucleated Red Blood Cells % 0.2 /100 WBC (0.0-0.4); Platelet Count 130 10^3/uL (150-450); Red Blood Count 2.92 10^6/uL (3.63-4.92); Red Cell Distribution Width 14.9 % (12-17); White Blood Count 6.3 10^3/uL (3.8-11.8)
[2023-05-29] MEDS: CMCS:Pravastatin 20 mg TAB (NF) PO SCH (16:57)
[2023-05-30 04:42] LABS: ABS Eosinophils 0.1 10^3/uL (0.0-0.5); ABS Lymphocytes 1.3 10^3/uL (1.0-4.8); ABS Monocytes 0.7 10^3/uL (0.0-0.9); ABS Neutrophils 4.4 10^3/uL (1.5-7.6); ABS Nucleated RBC 0.01 10^3/ul; Eosinophil % 1.2 %; Hematocrit 26.2 % (35-45); Hemoglobin 9.2 g/dL (11.5-14.3); Lymphocyte % 20.1 %; Mean Corpuscular Hemoglobin 31.5 pg (27-33); Mean Corpuscular Hgb Conc 35.1 g/dL (31-36); Mean Corpuscular Volume 89.5 fL (80-97); Mean Platelet Volume 6.9 fL (7.5-11.2); Nucleated Red Blood Cells % 0.1 /100 WBC (0.0-0.4); Platelet Count 161 10^3/uL (150-450); Red Blood Count 2.93 10^6/uL (3.63-4.92); Red Cell Distribution Width 15.1 % (12-17); White Blood Count 6.5 10^3/uL (3.8-11.8)
[2023-05-30 04:58] LABS: Calcium 7.1 mg/dL (8.6-10.3); Creatinine, Serum 0.77 mg/dL (0.51-0.95); Magnesium 1.8 mg/dL (1.9-2.7); Phosphorus 2.5 mg/dL (2.5-5.0); Potassium 3.6 mmol/L (3.5-5.0); eGFR CKD-EPI 86.1 (>60)
[2023-05-30] MEDS ORDERED: Magnesium Sulfate 2 gm BAG 2 GM/50 ML BAG IVPB ONE (07:53)
[2023-05-30] MEDS: Potassium & Sodium Phos 250 mg = 1 PACKET PO SCH ×2 (08:30→21:17)
[2023-05-30] MEDS: Multivitamins/Minerals TAB PO SCH (08:30)
[2023-05-30] MEDS: CMCS:Pravastatin 20 mg TAB (NF) PO SCH (16:55)
[2023-05-31 06:02] LABS: ABS Eosinophils 0.1 10^3/uL (0.0-0.5); ABS Lymphocytes 1.4 10^3/uL (1.0-4.8); ABS Monocytes 0.8 10^3/uL (0.0-0.9); ABS Neutrophils 3.6 10^3/uL (1.5-7.6); ABS Nucleated RBC 0.01 10^3/ul; Eosinophil % 1.5 %; Hematocrit 27.7 % (35-45); Hemoglobin 9.7 g/dL (11.5-14.3); Lymphocyte % 23.5 %; Mean Corpuscular Hemoglobin 31.4 pg (27-33); Mean Corpuscular Hgb Conc 35.1 g/dL (31-36); Mean Corpuscular Volume 89.4 fL (80-97); Mean Platelet Volume 7.2 fL (7.5-11.2); Nucleated Red Blood Cells % 0.1 /100 WBC (0.0-0.4); Platelet Count 225 10^3/uL (150-450); Red Cell Distribution Width 15.1 % (12-17); White Blood Count 5.9 10^3/uL (3.8-11.8)
[2023-05-31 06:24] LABS: Albumin 2.7 g/dL (3.2-5.2); Albumin/Globulin Ratio 1.4 (1-3); Calcium 7.9 mg/dL (8.6-10.3); Creatinine, Serum 0.68 mg/dL (0.51-0.95); Potassium 3.7 mmol/L (3.5-5.0); Total Bilirubin 0.6 mg/dL (0.2-1.0); Total Protein 4.7 g/dL (6.4-8.9); eGFR CKD-EPI 97.2 (>60)
[2023-05-31] MEDS: Potassium & Sodium Phos 250 mg = 1 PACKET PO SCH (10:33)
[2023-05-31] MEDS: Multivitamins/Minerals TAB PO SCH (10:34)
[2023-05-31 14:03] VITALS: BP 130/79
== END 2023-05-31 16:00 | disposition home or self-care (01) | DRG 622 ==
LOC: AA 05:46 → ICU 18:50 → SSU 05-30 19:53
PROVIDERS: ADMIT Plastic Surgery; ATTEND Internal Medicine